=== PATIENT | male | born 1930 | race Caucasian/White ===

== ENCOUNTER → 2017-08-11 | Outpatient (CLI) | payer MEDICARE ==
[~2017-08-11] MED LIST: AMLO5TAB2 PO; ATOR40TA69 PO; BENA20TA10 PO; BUPR-47 PO; CARV6.25 PO; CHOL200074 PO; CLOP75TA32 PO; DONE10TA8 PO; KRIL1CAP12 PO; LEVO25TA54 PO; MULT-1192 PO; POLY17PO4 PO; SOLI5 PO; UBID200C18 PO
== END | disposition home or self-care (01) ==
LOC: RAH 07:51
PROVIDERS: ATTEND Internal Medicine Gastroenterology
DX: K86.89 Other specified diseases of pancreas (principal); M43.16 Spondylolisthesis, lumbar region; M25.78 Osteophyte, vertebrae; K40.90 Unilateral inguinal hernia, without obstruction or gangrene, not specified as recurrent; Z98.890 Other specified postprocedural states
CPT/HCPCS: 74176